=== PATIENT | female | born 1995 | race African-American/Black ===

== ENCOUNTER 2017-06-26 17:16 | Emergency (ER) | payer SELFPAY ==
[2017-06-26] MEDS ORDERED: Ondansetron ODT 4 MG TAB ONE (18:47)
[2017-06-26 19:32] LABS: Bilirubin Small (Negative); Blood, Urine Large (Negative); Clarity CLOUDY (Clear); Glucose, Urine (Dipstick) Negative (Negative); Leukocyte Trace (Negative); Nitrite Negative (Negative); Protein, Urine (Dipstick) Trace mg/dL (Neg-Trace); Specific Gravity, Urine 1.035 (1.002-1.036); pH, Urine 6.5 (5.0-9.0)
[2017-06-26 19:33] LABS: Bacteria/HPF Rare-Few HPF (None Seen); Hyaline Casts/LPF 4-6 HYALINE CAST LPF (0-3 Hyaline); Pathc Cast-AUWi Flag 1.08 (0-2.49)
[2017-06-26 19:39] LABS: Pregnancy Test - Urine (BHCG) Negative (Negative); Pregu Control Background? CLEAR/WHITE (CLR/WHITE); Pregu Control Bar Appear? YES (CONTROL BAR); Specific Gravity 1.035 (1.002-1.036)
== END 2017-06-26 19:43 | disposition home or self-care (01) ==
LOC: ERS 17:16
DX: R11.2 Nausea with vomiting, unspecified (principal)
CPT/HCPCS: 81003; 81015; 81025; 87804; 99284; Q0162

== ENCOUNTER 2017-07-03 08:12 | Emergency (ER) | payer SELFPAY ==
[2017-07-03 09:35] LABS: Bilirubin Negative (Negative); Blood, Urine Negative (Negative); Clarity CLOUDY (Clear); Glucose, Urine (Dipstick) Negative (Negative); Leukocyte Negative (Negative); Nitrite Negative (Negative); Protein, Urine (Dipstick) Negative (Neg-Trace); Specific Gravity, Urine 1.026 (1.002-1.036)
[2017-07-03 09:37] LABS: Pregnancy Test - Urine (BHCG) Negative (Negative); Pregu Control Background? CLEAR/WHITE (CLR/WHITE); Pregu Control Bar Appear? YES (CONTROL BAR); Specific Gravity 1.026 (1.002-1.036)
[2017-07-03] MEDS ORDERED: cefTRIAXone\\ROCEPHIN 250 MG VIAL ONE (10:06)
[2017-07-03] MEDS ORDERED: Azithromycin 250 MG TAB ONE (10:06)
[2017-07-03] MEDS ORDERED: Lidocaine 1% PF 5 ML VIAL ONE (10:07)
[2017-07-03] MEDS ORDERED: Ondansetron ODT 4 MG TAB ONE (10:07)
[2017-07-04 00:55] LABS: Chlamydia by PCR Not Detected (NotDetected); GC by PCR Not Detected (NotDetected)
== END 2017-07-03 10:24 | disposition home or self-care (01) ==
LOC: ERS 08:12
DX: N72 Inflammatory disease of cervix uteri (principal)
CPT/HCPCS: 81003; 81025; 87480; 87491; 87510; 87591; 87660; 96372; J0696; J2001; Q0162

== ENCOUNTER 2017-08-24 23:02 | Emergency (ER) | payer SELFPAY ==
[2017-08-24 23:24] LABS: Pregnancy Test - Urine (BHCG) Negative (Negative); Pregu Control Background? CLEAR/WHITE (CLR/WHITE); Pregu Control Bar Appear? YES (CONTROL BAR)
[2017-08-24 23:25] LABS: Bilirubin Negative (Negative); Blood, Urine Negative (Negative); Clarity CLEAR (Clear); Glucose, Urine (Dipstick) Negative (Negative); Leukocyte Negative (Negative); Nitrite Negative (Negative); Protein, Urine (Dipstick) Negative (Neg-Trace); Specific Gravity 1.028 (1.002-1.036); Specific Gravity, Urine 1.028 (1.002-1.036)
[2017-08-24 23:27] LABS: #Basophils 0.1 thou/uL (0.0-0.2); #Eosinphils 0.1 thou/uL (0.0-0.7); #Lymphocytes 3.5 thou/uL (1.20-3.40); #Monocytes 0.4 thou/uL (0.11-0.59); #Neutrophils 3.1 thou/uL (1.40-6.50); %Eosinophils 2.1 % (0.0-10.0); %Lymphocytes 48.2 % (21.0-51.0); %Monocytes 6.2 % (0.0-10.0); %Neutrophils 42.6 % (42.0-75.0); Hemoglobin 12.2 g/dL (12.0-16.0); Mean Corpuscular HGB CONC 32.6 g/dL (32.0-36.0); Mean Corpuscular Hemoglobin 27.2 pg (27.0-31.0); Mean Corpuscular Volume 83.5 fl (81.0-99.0); Mean Platelet Volume 7.1 fL (7.4-10.4); Platelet Count 286 thou/uL (130-400); RBC Distribution Width 13.9 % (11.5-14.5); Red Blood Cell (RBC) Count 4.49 mill/uL (4.20-5.40); White Blood Cell (WBC) Count 7.2 thou/uL (4.8-10.8)
[2017-08-24 23:49] LABS: ALT (SGPT) 9 U/L (8-55); AST (SGOT) 18 U/L (5-34); Albumin 3.9 g/dL (3.5-5.0); Alkaline Phosphatase 53 U/L (40-150); Anion Gap 12 mmol/L (10-20); BUN (Urea Nitrogen) 8 mg/dL (7.0-18.7); Bilirubin, Total 0.6 mg/dL (0.2-1.2); Calc. Creatinine Clearance 0 mL/min (70-130); Calcium 9.1 mg/dL (7.8-10.44); Carbon Dioxide 25 mmol/L (22-29); Chloride 106 mmol/L (98-107); Estimated GFR-MDRD Greater than 90; Globulin 3.3 g/dL (2.4-3.5); Glucose 94 mg/dL (70-105); Lipase 13 U/L (8-78); Potassium 3.6 mmol/L (3.5-5.1); Protein, Total 7.2 g/dL (6.0-8.3); Sodium 139 mmol/L (136-145)
[2017-08-25] MEDS ORDERED: Ondansetron ODT 8 MG TAB ONE (00:17)
== END 2017-08-25 01:25 | disposition home or self-care (01) ==
LOC: ERS 23:02
DX: K52.9 Noninfective gastroenteritis and colitis, unspecified (principal)
CPT/HCPCS: 36415; 80053; 81003; 81025; 83690; 85025; 99284

== ENCOUNTER 2017-12-31 16:01 | Emergency (ER) | payer SELFPAY ==
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
== END 2017-12-31 17:41 | disposition home or self-care (01) ==
LOC: ERS 16:01
DX: O9A.211 Injury, poisoning and certain other consequences of external causes complicating pregnancy, first trimester (principal); S00.03XA Contusion of scalp, initial encounter; W22.8XXA Striking against or struck by other objects, initial encounter; Z3A.01 Less than 8 weeks gestation of pregnancy
CPT/HCPCS: 70450

== ENCOUNTER 2018-08-05 05:30 | Inpatient (IN) | payer OTHER ==
[2018-08-07] MEDS ORDERED: Diphenoxylate HCl/Atropine Tablet PO PRN (05:20)
[2018-08-07] MEDS ORDERED: HYDROcodone/Acetaminophen 5/325 mg Tablet PO PRN ×2 (05:20→12:14)
[2018-08-07] MEDS ORDERED: Misoprostol 200 MCG TAB PR PRN (05:20)
[2018-08-07] MEDS ORDERED: NS / Oxytocin 40 units/1000ml 1,000 ML IV PRN (05:20)
[2018-08-07] MEDS ORDERED: NS w/ Oxytocin 10 units 500 ML IV SCH ×2 (05:20)
[2018-08-07] MEDS ORDERED: Ondansetron PF 4 MG/2 ML Vial IVP PRN ×3 (05:20→12:14)
[2018-08-07] MEDS ORDERED: Lidocaine 1% (PF) 30 ML VIAL SC PRN (05:20)
[2018-08-07] MEDS ORDERED: Ibuprofen 800 MG TAB PO PRN (05:20)
[2018-08-07] MEDS ORDERED: Carboprost 250 MCG/ML AMP IM SCH (05:20)
[2018-08-07] MEDS ORDERED: Butorphanol Tartrate 1 MG/ML VIAL SLOW IVP PRN (05:20)
[2018-08-07] MEDS ORDERED: Lactated Ringer's 1,000 ML IV SCH (05:20)
[2018-08-07] MEDS ORDERED: Methylergonovine 0.2 MG/ML VIAL IM PRN (05:20)
[2018-08-07 05:55] VITALS: BMI 44.3
[2018-08-07 05:58] LABS: Hemoglobin 11.9 g/dL (12.0-16.0); Mean Corpuscular HGB CONC 33.2 g/dL (32.0-36.0); Mean Corpuscular Hemoglobin 28.2 pg (27.0-31.0); Mean Corpuscular Volume 84.9 fL (78.0-98.0); Mean Platelet Volume 6.9 fL (7.4-10.4); Platelet Count 262 thou/uL (130-400); RBC Distribution Width 13.1 % (11.5-14.5); Red Blood Cell (RBC) Count 4.22 mill/uL (4.20-5.40); White Blood Cell (WBC) Count 8.8 thou/uL (4.8-10.8)
[2018-08-07 06:33] LABS: Syphilis Antibody Nonreactive (Nonreactive); Syphilis Antibody Index 0.06 S/CO (<1.00 Non-Reactive)
[2018-08-07 06:34] LABS: HBSAg Index 0.18 S/CO (0-0.99); Hep B Surf Ag Non-Reactive S/CO (NonReactive)
[2018-08-07] MEDS ORDERED: Oxytocin 10 UNITS/ML VIAL ONE ×2 (09:19→09:22)
[2018-08-07] MEDS ORDERED: CEFAZOLIN 1 GM VIAL ONE ×2 (09:19→09:20)
[2018-08-07] MEDS ORDERED: Methylergonovine 0.2 MG/ML VIAL ONE (09:20)
[2018-08-07] MEDS ORDERED: Fentanyl 100 MCG/2 ML VIAL ONE ×2 (09:26→09:40)
[2018-08-07 09:54] LABS: pH (Cord, venous) 7.18 (7.32-7.43)
[2018-08-07 09:55] LABS: Analyzer IN Cardio OR
[2018-08-07 09:59] LABS: Analyzer IN Cardio OR
[2018-08-07] MEDS ORDERED: L&D-Morphine 4 MG/ML VIAL SLOW IVP PRN (10:14)
[2018-08-07] MEDS ORDERED: Zolpidem Tartrate 5 MG TAB PO PRN (10:14)
[2018-08-07] MEDS ORDERED: diphenhydrAMINE 25 MG CAP PO PRN ×2 (10:14→12:14)
[2018-08-07] MEDS ORDERED: Promethazine HCl 25 MG/ML VIAL SLOW IVP PRN (10:14)
[2018-08-07] MEDS ORDERED: HYDROmorphone 2 MG/ML VIAL SLOW IVP PRN (10:14)
[2018-08-07] MEDS ORDERED: Ondansetron HCl/PF 4 MG/2 ML Vial IVP PRN ×2 (10:14)
[2018-08-07] MEDS ORDERED: diphenhydrAMINE 50 MG/ML VIAL IM PRN (10:14)
[2018-08-07] MEDS ORDERED: diphenhydrAMINE 50 MG/ML VIAL IVP PRN (10:14)
[2018-08-07] MEDS ORDERED: Promethazine HCl 25 MG/ML VIAL IM PRN ×2 (10:14)
[2018-08-07] MEDS ORDERED: Meperidine HCl/PF 25 MG/ML VIAL SLOW IVP PRN (10:14)
[2018-08-07] MEDS ORDERED: Naloxone HCl 0.4 mg/ml Vial IV PRN (10:14)
[2018-08-07] MEDS ORDERED: metroNIDAZOLE 500 MG in Premix Bag 1 BAG IVPB SCH (10:15)
[2018-08-07] MEDS ORDERED: Ketorolac Tromethamine 30 MG/ML VIAL IVP SCH (10:15)
[2018-08-07] MEDS ORDERED: Azithromycin 500 MG in Sodium Chloride 0.9% 250 ML 250 ML IVPB SCH (10:15)
[2018-08-07] MEDS ORDERED: Communication Order-Pharmacy FS SCH (10:15)
[2018-08-07] MEDS ORDERED: Meperidine HCl/PF 25 MG/ML VIAL ONE (10:32)
[2018-08-07] MEDS: fentaNYL Citrate/PF 2,000 MCG in Sodium Chloride 0.9% 60 ML IV PRN (10:40)
--- NOTE | 2018-08-07 11:00 | RAD ---
PELVIS 1 VIEW: HISTORY: Surgery without initial count COMPARISON: None. FINDINGS: There are surgical cristian over the lower pelvis. Mild widening of the pubic symphysis. No radiopaq ue foreign object is appreciated. IMPRESSION: No radiopaque foreign objects appreciated. POS: [facility]
[2018-08-07] MEDS ORDERED: ePHEDrine/0.9% NaCl/PF SYRINGE 50 mg/10 ml ONE ×2 (11:11)
[2018-08-07] MEDS ORDERED: EPINEPHrine 1 MG/ML AMP ONE (11:11)
[2018-08-07] MEDS ORDERED: PHENYLEPHRINE-NS 100 MCG/ML 10 ML SYRINGE ONE (11:11)
[2018-08-07] MEDS ORDERED: PROPOFOL 200 MG/20 ML VIAL ONE (11:11)
[2018-08-07] MEDS: Lactated Ringer's 1,000 ML IV SCH (11:30)
[2018-08-07] MEDS ORDERED: NS / Oxytocin 40 units/1000ml 1,000 ML IV SCH (12:14)
[2018-08-07] MEDS ORDERED: Adacel (T-DAP) 0.5 ML SYRINGE IM ONE (12:14)
[2018-08-07] MEDS ORDERED: Meperidine HCl/PF 25 MG/ML VIAL IM PRN (12:14)
[2018-08-07] MEDS ORDERED: Simethicone Chewable 80 MG TAB PO PRN (12:14)
[2018-08-07] MEDS ORDERED: Bisacodyl 10 MG SUPP PR PRN (12:14)
[2018-08-07] MEDS: Ibuprofen 800 MG TAB PO SCH ×2 (17:26→22:10)
[2018-08-07] MEDS ORDERED: Sodium Chloride 0.9% 10 ML ONE (17:41)
[2018-08-07] MEDS: CEFAZOLIN 2 GM in Premix Bag 1 BAG IVPB SCH (17:52)
[2018-08-07] MEDS: metroNIDAZOLE 500 MG in Premix Bag 1 BAG IVPB SCH (19:54)
[2018-08-07] MEDS: Docusate Calcium (SURFAK) 240 MG CAP PO SCH (22:08)
[2018-08-07] MEDS: Ferrous Sulfate 325 MG TAB PO SCH (22:08)
[2018-08-07] MEDS: Ketorolac Tromethamine 30 MG/ML VIAL IVP PRN (22:10)
[2018-08-08] MEDS: CEFAZOLIN 2 GM in Premix Bag 1 BAG IVPB SCH ×3 (02:48→18:28)
[2018-08-08] MEDS: Lactated Ringer's 1,000 ML IV SCH (03:48)
[2018-08-08] MEDS: metroNIDAZOLE 500 MG in Premix Bag 1 BAG IVPB SCH ×3 (03:48→20:07)
[2018-08-08] MEDS: Ketorolac Tromethamine 30 MG/ML VIAL IVP PRN ×3 (03:49→21:29)
[2018-08-08] MEDS: Ibuprofen 800 MG TAB PO SCH ×3 (05:43→13:23)
[2018-08-08 06:56] LABS: Hemoglobin 9.6 g/dL (12.0-16.0); Mean Corpuscular Hemoglobin 28.4 pg (27.0-31.0); Mean Corpuscular Volume 85.8 fL (78.0-98.0); Mean Platelet Volume 6.7 fL (7.4-10.4); Platelet Count 217 thou/uL (130-400); RBC Distribution Width 13.2 % (11.5-14.5); Red Blood Cell (RBC) Count 3.38 mill/uL (4.20-5.40); White Blood Cell (WBC) Count 11.7 thou/uL (4.8-10.8)
[2018-08-08] MEDS: Ferrous Sulfate 325 MG TAB PO SCH ×2 (08:39→21:28)
[2018-08-08] MEDS: Prenatal Vitamin 1 TAB PO SCH (08:39)
[2018-08-08] MEDS: Docusate Calcium (SURFAK) 240 MG CAP PO SCH ×2 (08:39→21:28)
[2018-08-08] MEDS: fentaNYL Citrate/PF 2,000 MCG in Sodium Chloride 0.9% 60 ML IV PRN (14:43)
--- NOTE | 2018-08-08 23:30 | OP ---
DATE OF PROCEDURE: 08/07/2018 RESIDENT SURGEON: Dr. Guerline Camp. PROCEDURE PERFORMED: Primary low transverse section. PREOPERATIVE DIAGNOSES: 1. Term intrauterine . 2. Encounter for induction of labor. 3. Non-reassuring heart tones with bradycardia into the 40s. POSTOPERATIVE DIAGNOSES: 1. Term intrauterine , delivered. 2. Primary low-transverse section. 3. Non-reassuring heart tones with bradycardia into the 40s. ANESTHESIA: General anesthesia. INDICATIONS: This is a 22-year-old female G1, P0, at 40 and 1 weeks who presented to Labor and delivery for an elective induction. Due to nonreassuring heart tones with bradycardia into the 40s, the patient was taken back for stat section. General anesthesia was initiated and the was delivered within 1 minute from cutt time. DESCRIPTION OF PROCEDURE: After risks, benefits, and alternatives were explained to the patient, she gave informed consent. Of note, this was a stat delivery due to nonreassuring heart tones with bradycardia into the 40s. Preoperative antibiotics included cefazolin 2 g and azithromycin 500 mg, which was actually given after the delivery was complete. The patient was taken back to operating room stat and general anesthesia was performed. The patient was placed in the supine position with left tilt, prepped and draped in the sterile fashion. A Pfannenstiel incision was made with a scalpel, carried down to the level of fascia which was sharply nicked. The fascial cut was extended bilaterally with Wade scissors. The inferior and superior fascial edges were elevated with Judit clamps and underlying rectus muscles were sharply and bluntly dissected free. The recti were dissected digitally and retracted manually. Peritoneum was entered bluntly and retracted manually. Bladder blade was placed. A low transverse score was made with a scalpel. The uterus was entered in the midline with a scalpel. Clear fluid was seen. The hysterotomy was extended manually. was noted to be vertex and was easily delivered by fundal pressure. Mouth and nares were bulb suctioned. Cord was clamped and cut and grossly normal. Female was handed to the waiting nurse. Cord blood was obtained along with cord gas. Placenta was manually extracted and found to be intact with three-vessel cord and sent for pathology. The uterus was externalized and endometrium was curetted with a dry lap. The bladder blade was placed. The uterus was closed with a running locking 0 Vicryl suture followed by suctioned free of clots. The uterus was then internalized and hysterotomy was noted to be hemostatic. The peritoneum was closed using 3-0 Vicryl. The fascia was then closed with running nonlocking 0 PDS suture. The subcutaneous tissue was irrigated and bleeders were cauterized. The subcutaneous tissue was brought together using 3-0 Vicryl. The skin was then approximated with cristian and a pressure dressing was placed. All counts were correct. The patient tolerated the procedure well and was taken to the recovery room in stable condition after awakening from general anesthesia. ESTIMATED BLOOD LOSS: Approximately 500 mL, although I am waiting for a report to verify. COMPLICATIONS: None. SPECIMENS: Cord blood sent to lab for blood type and cord gas sent for analysis. FINDINGS: Grossly normal female infant with Apgars of 7 and 8 at 1 and 5 minutes respectively. Grossly normal placenta with three-vessel cord sent for pathology. DRAINS: Joe to gravity draining clear urine. Job ID: [id number] [facility]
[2018-08-09] MEDS: CEFAZOLIN 2 GM in Premix Bag 1 BAG IVPB SCH (02:20)
[2018-08-09] MEDS: metroNIDAZOLE 500 MG in Premix Bag 1 BAG IVPB SCH (04:00)
[2018-08-09] MEDS: Ketorolac Tromethamine 30 MG/ML VIAL IVP PRN (04:06)
[2018-08-09] MEDS: Lanolin Ointment 7 GM TUBE TOP PRN (04:06)
[2018-08-09] MEDS: Ibuprofen 800 MG TAB PO SCH ×3 (06:43→21:55)
[2018-08-09] MEDS: Ferrous Sulfate 325 MG TAB PO SCH ×2 (08:25→21:54)
[2018-08-09] MEDS: Prenatal Vitamin 1 TAB PO SCH (08:25)
[2018-08-09] MEDS: Docusate Calcium (SURFAK) 240 MG CAP PO SCH ×2 (08:26→21:54)
[2018-08-09] MEDS ORDERED: metroNIDAZOLE 500 MG TAB PO SCH ×2 (11:00→15:00)
[2018-08-09] MEDS: Cephalexin 250 MG CAP PO SCH ×3 (11:19→21:54)
[2018-08-09] MEDS: HYDROcodone/Acetaminophen 5/325 mg Tablet PO PRN ×2 (13:49→20:26)
[2018-08-09] MEDS: metroNIDAZOLE 500 MG TAB PO SCH (21:55)
[2018-08-10] MEDS: HYDROcodone/Acetaminophen 5/325 mg Tablet PO PRN (02:57)
[2018-08-10] MEDS: Cephalexin 250 MG CAP PO SCH ×2 (03:49→08:48)
[2018-08-10] MEDS: Ibuprofen 800 MG TAB PO SCH (06:10)
[2018-08-10] MEDS: metroNIDAZOLE 500 MG TAB PO SCH (06:10)
[2018-08-10] MEDS: Prenatal Vitamin 1 TAB PO SCH (08:45)
[2018-08-10] MEDS: Docusate Calcium (SURFAK) 240 MG CAP PO SCH (08:46)
[2018-08-10] MEDS: Ferrous Sulfate 325 MG TAB PO SCH (08:46)
[2018-08-10 10:29] VITALS: BP 144/78; TEMP 98.3
[2018-08-10] MEDS: Lanolin Ointment 7 GM TUBE TOP PRN (12:33)
== END 2018-08-10 12:46 | disposition home or self-care (01) | DRG 788 ==
LOC: L&D 08-07 05:20 → 3SE 08-07 14:14
PROVIDERS: ADMIT Family Medicine; ATTEND Family Medicine
PROC: 10D00Z1 Extraction of Products of Conception, Low, Open Approach (ICD-10-PCS; principal; 2018-08-07)
PROC: 10907ZC Drainage of Amniotic Fluid, Therapeutic from Products of Conception, Via Natural or Artificial Opening (ICD-10-PCS; 2018-08-07)
PROC: 3E033VJ Introduction of Other Hormone into Peripheral Vein, Percutaneous Approach (ICD-10-PCS; 2018-08-07)
PROC: 10H07YZ Insertion of Other Device into Products of Conception, Via Natural or Artificial Opening (ICD-10-PCS; 2018-08-07)
DX: O99.214 Obesity complicating childbirth (principal); O76 Abnormality in fetal heart rate and rhythm complicating labor and delivery; E66.9 Obesity, unspecified; Z3A.40 40 weeks gestation of pregnancy; Z37.0 Single live birth
CPT/HCPCS: 36415; 51702; 72170; 82805; 85027; 86780; 86850; 86900; 86901; 87340; 88307; 90715; J0171; J0456; J0595; J0690; J1885; J2175; J2210; J2590; J2704; J3010; J7050

== ENCOUNTER 2018-11-02 13:24 | Emergency (ER) | payer OTHER, SELFPAY | END 2018-11-02 15:32 | disposition home or self-care (01) | LOC: ERS 13:24 | DX: H66.92 Otitis media, unspecified, left ear (principal); J06.9 Acute upper respiratory infection, unspecified | CPT/HCPCS: 99283 ==

== ENCOUNTER 2018-12-30 18:03 | Emergency (ER) | payer SELFPAY ==
[2018-12-30] MEDS ORDERED: Ondansetron ODT 4 MG TAB ONE (18:22)
[2018-12-30 18:43] LABS: #Basophils 0.1 thou/uL (0.0-0.2); #Eosinphils 0.2 thou/uL (0.0-0.7); #Monocytes 0.4 thou/uL (0.11-0.59); #Neutrophils 3.1 thou/uL (1.40-6.50); %Basophils 1.1 % (0.0-1.0); %Lymphocytes 44.4 % (21.0-51.0); %Neutrophils 45.5 % (42.0-75.0); Hemoglobin 12.2 g/dL (12.0-16.0); Mean Corpuscular HGB CONC 32.1 g/dL (32.0-36.0); Mean Corpuscular Hemoglobin 26.8 pg (27.0-31.0); Mean Corpuscular Volume 83.5 fL (78.0-98.0); Mean Platelet Volume 7.2 fL (7.4-10.4); Platelet Count 270 thou/uL (130-400); RBC Distribution Width 13.9 % (11.5-14.5); Red Blood Cell (RBC) Count 4.56 mill/uL (4.20-5.40); White Blood Cell (WBC) Count 6.8 thou/uL (4.8-10.8)
[2018-12-30 18:52] LABS: BHCG - Serum POSITIVE (NEGATIVE); Pregs Control Background? CLEAR/WHITE (CLR/WHITE); Pregs Control Bar Appear? YES (CONTROL BAR)
[2018-12-30 19:05] LABS: ALT (SGPT) 27 U/L (8-55); AST (SGOT) 22 U/L (5-34); Albumin 3.8 g/dL (3.5-5.0); Alkaline Phosphatase 62 U/L (40-150); Anion Gap 12 mmol/L (10-20); BUN (Urea Nitrogen) 7 mg/dL (7.0-18.7); Bilirubin, Total 0.8 mg/dL (0.2-1.2); Calc. Creatinine Clearance 0 mL/min (70-130); Carbon Dioxide 22 mmol/L (22-29); Chloride 105 mmol/L (98-107); Estimated GFR-MDRD Greater than 90; Globulin 3.1 g/dL (2.4-3.5); Glucose 78 mg/dL (70-105); Potassium 3.4 mmol/L (3.5-5.1); Protein, Total 6.9 g/dL (6.0-8.3); Sodium 136 mmol/L (136-145)
== END 2018-12-30 19:47 | disposition home or self-care (01) ==
LOC: ERS 18:03
DX: R11.2 Nausea with vomiting, unspecified (principal); R19.7 Diarrhea, unspecified
CPT/HCPCS: 36415; 80053; 84703; 85025; 99284; Q0162

== ENCOUNTER 2019-01-14 19:37 | Emergency (ER) | payer SELFPAY ==
[2019-01-14 20:22] LABS: #Eosinphils 0.1 thou/uL (0.0-0.7); #Lymphocytes 2.1 thou/uL (1.20-3.40); #Monocytes 0.4 thou/uL (0.11-0.59); #Neutrophils 4.2 thou/uL (1.40-6.50); %Basophils 0.3 % (0.0-1.0); %Eosinophils 0.9 % (0.0-10.0); %Lymphocytes 30.6 % (21.0-51.0); %Monocytes 5.7 % (0.0-10.0); %Neutrophils 62.5 % (42.0-75.0); Hemoglobin 12.7 g/dL (12.0-16.0); Mean Corpuscular HGB CONC 33.6 g/dL (32.0-36.0); Mean Corpuscular Hemoglobin 27.8 pg (27.0-31.0); Mean Corpuscular Volume 82.8 fL (78.0-98.0); Mean Platelet Volume 7.3 fL (7.4-10.4); Platelet Count 244 thou/uL (130-400); RBC Distribution Width 14.4 % (11.5-14.5); Red Blood Cell (RBC) Count 4.58 mill/uL (4.20-5.40); White Blood Cell (WBC) Count 6.7 thou/uL (4.8-10.8)
[2019-01-14] MEDS ORDERED: Ondansetron PF 4 MG/2 ML Vial ONE (20:41)
[2019-01-14 20:44] LABS: ALT (SGPT) 16 U/L (8-55); AST (SGOT) 19 U/L (5-34); Albumin 4.1 g/dL (3.5-5.0); Alkaline Phosphatase 59 U/L (40-150); Anion Gap 13 mmol/L (10-20); BUN (Urea Nitrogen) 8 mg/dL (7.0-18.7); Bilirubin, Total 1.3 mg/dL (0.2-1.2); CK (CPK) 338 U/L (29-168); Calc. Creatinine Clearance 0 mL/min (70-130); Calcium 9.6 mg/dL (7.8-10.44); Carbon Dioxide 23 mmol/L (22-29); Chloride 103 mmol/L (98-107); Estimated GFR-MDRD Greater than 90; Globulin 3.4 g/dL (2.4-3.5); Glucose 78 mg/dL (70-105); Lipase 5 U/L (8-78); Protein, Total 7.5 g/dL (6.0-8.3); Sodium 135 mmol/L (136-145)
[2019-01-14 20:57] LABS: Bacteria/HPF 4+ HPF (None Seen); Bilirubin Negative (Negative); Blood, Urine Negative (Negative); Clarity Extra Turbid (Clear); Glucose, Urine (Dipstick) Normal (Negative); Leukocyte 500 Leu/uL (Negative); Mucous/LPF Rare LPF (<2+); Nitrite Negative (Negative); Protein, Urine (Dipstick) 300 mg/dL (Neg-Trace); WBC/HPF Greater than 50 HPF (0-3)
[2019-01-14 21:00] LABS: RBC/HPF 0-3 HPF (0-3)
[2019-01-14 21:01] LABS: Squamous Epithelial 21-50 HPF (0-3)
--- NOTE | 2019-01-14 21:52 | ULT ---
PELVIC ULTRASOUND: 01/14/19 HISTORY: Pelvic pain, nausea and vomiting. Transabdominal ultrasound of pelvis performed. There is a viable intrauterine identified. A gestational sac is noted. A yolk sac is iden tified. A pole is identified. [place]-rump length indicates a 7 week, 0 day gestation. hear t rate recorded at 128 beats per minute. The right ovary is identified and appears unremarkable. Doppler and spectral analysis demonstrates bl ood flow to the right ovary. The left ovary is not identified. No free fluid. IMPRESSION: A viable intrauterine . [place]-rump length indicates a 7 weeks, 0 day gestational age. POS: [facility]
== END 2019-01-14 22:15 | disposition home or self-care (01) ==
LOC: ERS 19:37
DX: O99.281 Endocrine, nutritional and metabolic diseases complicating pregnancy, first trimester (principal); E86.0 Dehydration; O23.41 Unspecified infection of urinary tract in pregnancy, first trimester; O21.9 Vomiting of pregnancy, unspecified; O99.89 Other specified diseases and conditions complicating pregnancy, childbirth and the puerperium; R19.7 Diarrhea, unspecified; Z3A.01 Less than 8 weeks gestation of pregnancy
CPT/HCPCS: 36415; 76856; 80053; 81003; 81015; 82550; 83690; 84702; 85025; 96361; 96374; J2405

== ENCOUNTER 2019-01-17 10:30 | Emergency (ER) | payer SELFPAY ==
[2019-01-17] MEDS ORDERED: Metoclopramide HCl 10 MG/2 ML VIAL ONE (13:11)
[2019-01-17 13:39] LABS: #Lymphocytes 1.3 thou/uL (1.20-3.40); #Monocytes 0.1 thou/uL (0.11-0.59); #Neutrophils 7.7 thou/uL (1.40-6.50); %Basophils 0.3 % (0.0-1.0); %Eosinophils 0.2 % (0.0-10.0); %Lymphocytes 14.2 % (21.0-51.0); %Monocytes 1.1 % (0.0-10.0); %Neutrophils 84.2 % (42.0-75.0); Hemoglobin 13.3 g/dL (12.0-16.0); Mean Corpuscular HGB CONC 33.5 g/dL (32.0-36.0); Mean Corpuscular Hemoglobin 27.8 pg (27.0-31.0); Mean Corpuscular Volume 83.1 fL (78.0-98.0); Mean Platelet Volume 7.2 fL (7.4-10.4); Platelet Count 289 thou/uL (130-400); RBC Distribution Width 14.7 % (11.5-14.5); Red Blood Cell (RBC) Count 4.76 mill/uL (4.20-5.40); White Blood Cell (WBC) Count 9.1 thou/uL (4.8-10.8)
[2019-01-17 13:57] LABS: ALT (SGPT) 21 U/L (8-55); AST (SGOT) 19 U/L (5-34); Albumin 4.4 g/dL (3.5-5.0); Alkaline Phosphatase 62 U/L (40-150); Anion Gap 13 mmol/L (10-20); BUN (Urea Nitrogen) 8 mg/dL (7.0-18.7); Bilirubin, Total 0.9 mg/dL (0.2-1.2); Calc. Creatinine Clearance 0 mL/min (70-130); Calcium 10.1 mg/dL (7.8-10.44); Carbon Dioxide 22 mmol/L (22-29); Chloride 106 mmol/L (98-107); Estimated GFR-MDRD Greater than 90; Globulin 3.4 g/dL (2.4-3.5); Glucose 106 mg/dL (70-105); Potassium 3.8 mmol/L (3.5-5.1); Protein, Total 7.8 g/dL (6.0-8.3); Sodium 137 mmol/L (136-145)
[2019-01-17 14:05] LABS: Bilirubin Small (Negative); Blood, Urine Trace (Negative); Glucose, Urine (Dipstick) Negative (Negative); Leukocyte Small (Negative); Nitrite Negative (Negative); Protein, Urine (Dipstick) 30 mg/dL (Neg-Trace)
[2019-01-17 14:30] LABS: Clarity Cloudy (Clear)
[2019-01-17 14:32] LABS: Bacteria/HPF 2+ HPF (None Seen); RBC/HPF 0-3 HPF (0-3); Squamous Epithelial 21-50 HPF (0-3)
[2019-01-17] MEDS ORDERED: cefTRIAXone\\ROCEPHIN 1 GM VIAL ONE (15:08)
[2019-01-17] MEDS ORDERED: Promethazine HCl 25 MG/ML VIAL ONE (15:31)
== END 2019-01-17 16:32 | disposition home or self-care (01) ==
LOC: ERS 10:30
DX: O23.41 Unspecified infection of urinary tract in pregnancy, first trimester (principal); O99.89 Other specified diseases and conditions complicating pregnancy, childbirth and the puerperium; R19.7 Diarrhea, unspecified; Z3A.08 8 weeks gestation of pregnancy
CPT/HCPCS: 36415; 80053; 81003; 81015; 85025; 87086; 87324; 87328; 87329; 87449; 96361; 96365; 96367; 96375; J0696; J2550; J2765

== ENCOUNTER 2019-02-01 14:12 | Observation (INO) | payer OTHER, SELFPAY ==
[2019-02-01 15:57] LABS: #Lymphocytes 2.5 thou/uL (1.20-3.40); #Monocytes 0.7 thou/uL (0.11-0.59); #Neutrophils 5.9 thou/uL (1.40-6.50); %Basophils 0.4 % (0.0-1.0); %Eosinophils 0.3 % (0.0-10.0); %Lymphocytes 27.5 % (21.0-51.0); %Monocytes 8.1 % (0.0-10.0); %Neutrophils 63.7 % (42.0-75.0); Hemoglobin 14.6 g/dL (12.0-16.0); Mean Corpuscular Hemoglobin 28.3 pg (27.0-31.0); Mean Corpuscular Volume 83.2 fL (78.0-98.0); Mean Platelet Volume 7.6 fL (7.4-10.4); Platelet Count 293 thou/uL (130-400); RBC Distribution Width 14.1 % (11.5-14.5); Red Blood Cell (RBC) Count 5.15 mill/uL (4.20-5.40); White Blood Cell (WBC) Count 9.2 thou/uL (4.8-10.8)
[2019-02-01 16:19] LABS: ALT (SGPT) 105 U/L (8-55); AST (SGOT) 58 U/L (5-34); Albumin 4.1 g/dL (3.5-5.0); Alkaline Phosphatase 76 U/L (40-150); Anion Gap 15 mmol/L (10-20); BUN (Urea Nitrogen) 11 mg/dL (7.0-18.7); Calc. Creatinine Clearance 0 mL/min (70-130); Calcium 10.9 mg/dL (7.8-10.44); Carbon Dioxide 37 mmol/L (22-29); Chloride 85 mmol/L (98-107); Estimated GFR-MDRD 73; Globulin 4.4 g/dL (2.4-3.5); Glucose 98 mg/dL (70-105); Protein, Total 8.5 g/dL (6.0-8.3); Sodium 134 mmol/L (136-145)
[2019-02-01 16:21] LABS: Potassium 2.9 mmol/L (3.5-5.1)
[2019-02-01] MEDS ORDERED: Potassium Chloride 20 MEQ TAB ONE (17:01)
[2019-02-01] MEDS ORDERED: Promethazine HCl 25 MG/ML VIAL ONE (17:05)
--- NOTE | 2019-02-01 19:24 | ULT ---
RIGHT UPPER QUADRANT ULTRASOUND: 02/01/2019 PROVIDED CLINICAL HISTORY: Nausea and vomiting. FINDINGS: The visualized IVC and pancreas appear normal. The liver demonstrates no mass or intrahepatic biliar y ductal dilatation. The common duct is not dilated. The gallbladder demonstrates sludge and probab le small gallstones, without evidence for wall thickening or pericholecystic fluid. The fighting vehicle infantryman reports a negative sonographic Soliman sign. The right kidney demonstrates no evidence for hydronephr osis or mass. IMPRESSION: Cholelithiasis/sludge within the gallbladder without evidence for acute findings related to the gallb ladder. POS: [facility]
--- NOTE | 2019-02-01 19:28 | ULT ---
US Pelvic W Doppler HISTORY: Pelvic pain COMPARISON: 01/14/2019 study. FINDINGS: Real-time imaging of the pelvis was obtained transabdominally. This shows a single viable i ntrauterine . [place]-rump length measurements are 2.7 cm corresponding to 9 weeks 3 days. Gestational sac measurements are 3.6 cm corresponding to 8 weeks 6 days. No subchorionic bleed is seen. The heart rate is 187 bpm. The right and left adnexal regions appear unremarkable. The right ovary somewhat difficult to visuali ze. Doppler evaluation with spectral analysis: Normal flow shown to the ovaries. IMPRESSION: Single viable intrauterine with measurements corresponding to a gestational age of 9 weeks 1 day, the estimated date of delivery is 09/05/2019.
[2019-02-01 20:00] LABS: ALT (SGPT) 109 U/L (8-55); AST (SGOT) 58 U/L (5-34); Albumin 4.2 g/dL (3.5-5.0); Alkaline Phosphatase 78 U/L (40-150); Bilirubin, Direct 1.9 mg/dL (0.1-0.3); Protein, Total 8.4 g/dL (6.0-8.3)
[2019-02-01 20:17] LABS: Bilirubin 1+ (Negative); Blood, Urine Negative (Negative); Clarity Turbid (Clear); Glucose, Urine (Dipstick) Greater than 1000 mg/dL (Negative); Leukocyte 75 Leu/uL (Negative); Nitrite Negative (Negative); Protein, Urine (Dipstick) 30 mg/dL (Neg-Trace); RBC/HPF 0-3 HPF (0-3); Urobilinogen 12 mg/dL (Less than 2)
[2019-02-01 20:30] LABS: Bacteria/HPF 2+ HPF (None Seen)
[2019-02-01] MEDS ORDERED: Ondansetron PF 4 MG/2 ML Vial IVP PRN (22:22)
[2019-02-01] MEDS ORDERED: Promethazine HCl 25 MG/ML VIAL IM/IV PRN (22:24)
--- NOTE | 2019-02-01 23:19 | PDOC.FPROB ---
FMR OB H&P: HPI - History of Present Illness Chief Complaint: 4 week history of nausea, vomiting, and fatigue. History of Present Illness: Ms. Cutler is a 23 year old female who presents to the ER tonight due to a 4 week history of severe nausea and vomiting every time she eats. She is unable to keep any food or drink down, including pedialyte, water, or applesauce. Yesterday, she experienced an episode of dizziness where she felt like she might faint. Oral Zofran has not helped her nausea, which she currently rates as a 7/10. She has come to the ER a few times before for the same chief complaint of severe nausea and vomiting. Patient reports having loose stools, orthostatic hypotension, intermittent numbness in her lower extremities, severe fatigue, and reflux. She also reports that she usually weights around 245 pounds, but the last time she checked her weight the scale read 215 pounds. Patient denies chest pain, shortness of breath, and changes in urination. FMR OB H&P: Current - Care : 2 Para: 1 Gestational age: 9 weeks 1 day as indicated on pelvic US FMR OB H&P: History - Past Medical History PMH: Unremarkable. - OB History OB History: The patient is . LMP was in October 2018. Patient has not scheduled her first appointment yet. Roll Filler for her previous was Dr. Posadas. She gave to her daughter on 2018 via emergency due to bradycardia. - LEGAL ADMINISTRATIVE SECRETARY History LEGAL ADMINISTRATIVE SECRETARY History: Denies history of HIV and STDs including gonorrhea, chlamydia, and syphilis. She does report having vaginal candidiasis and bacterial vaginosis during previous , for which she was treated for. All previous Pap Smears have been normal. - Surgical History Sx History: Emergency on 2018. No complications in recovery. - Social History Social History: Unknown. Will need to assess further for alcohol, tobacco, and drug use. FMR OB H&P: Medications - Current Home Medications: Medication Instructions Recorded Confirmed Type No Known 02/01/19 02/01/19 History Allergies/Adverse Reactions: Allergies Allergy/AdvReac Type Severity Reaction Status Date / Time No Known Allergies Allergy Verified 02/01/19 23:30 FMR OB H&P: ROS - Review of Systems General: reports: weight/appetite/sleep changes, fatigue Cardiovascular: reports: other (orthostatic hypotension) Respiratory: reports: shortness of breath Gastrointestinal: reports: nausea, vomiting, diarrhea, constipation Musculoskeletal: reports: swelling Neurologic: reports: numbness FMR OB H&P: Vital Signs - Maternal Vital signs: Vitals at 23:25 T 98.1 F HR 86 bpm RR 18 BP 109/58 O2 98% on room air FMR OB H&P: Physical Exam - Physical Exam General: awake, alert and oriented HEENT: EOMI, other (Dry mucous membranes.) Neck: supple, trachea midline, no LAD Chest: no lesions Heart: RRR, normal S1/S2, no murmurs/rubs/gallops, pulses present (2+ radial pulses and 1+ pedal pulses.) General: good air movement, no rales/rhonchi Abdomen: soft, non-tender, bowel sound present Musculoskeletal: other (1+ edema in lower extremities bilaterally.) Neurological: cranial nerves II through XII intact Skin: other (Mildly delayed capillary refill >2 seconds.) Lymphatic: no unusual bruising or bleeding Psychiatric: intact recent and remote memory, good judgement and insight, normal mood and affect FMR OB H&P: Results - Labs Lab results: Laboratory Results - last 24 hr 02/01/19 02/01/19 02/01/19 15:48 15:48 15:48 WBC 9.2 RBC 5.15 Hgb 14.6 Hct 42.8 MCV 83.2 MCH 28.3 MCHC 34.0 RDW 14.1 Plt Count 293 MPV 7.6 Neutrophils % 63.7 Lymphocytes % 27.5 Monocytes % 8.1 Eosinophils % 0.3 Basophils % 0.4 Neutrophils # 5.9 Lymphocytes # 2.5 Monocytes # 0.7 H Eosinophils # 0.0 Basophils # 0.0 Sodium 134 L Potassium 2.9 L* Chloride 85 L Carbon Dioxide 37 H Anion Gap 15 BUN 11 Creatinine 1.12 H Estimated GFR (MDRD) 73 Glucose 98 Calcium 10.9 H Total Bilirubin 3.0 H Direct Bilirubin AST 58 H ALT 105 H Alkaline Phosphatase 76 Serum Total Protein 8.5 H Albumin 4.1 Globulin 4.4 H Albumin/Globulin Ratio 0.9 L Lipase 8 Total Beta HCG Urine Color Urine Clarity Urine pH Ur Specific Webber Urine Protein Urine Glucose (UA) Urine Ketones Urine Blood Urine Nitrite Urine Bilirubin Urine Urobilinogen Ur Leukocyte Esterase Urine RBC Urine WBC Ur Squamous Epith Cells Urine Bacteria Hyaline Casts 02/01/19 02/01/19 02/01/19 16:47 16:58 18:18 WBC RBC Hgb Hct MCV MCH MCHC RDW Plt Count MPV Neutrophils % Lymphocytes % Monocytes % Eosinophils % Basophils % Neutrophils # Lymphocytes # Monocytes # Eosinophils # Basophils # Sodium Potassium Chloride Carbon Dioxide Anion Gap BUN Creatinine Estimated GFR (MDRD) Glucose Calcium Total Bilirubin 3.0 H Direct Bilirubin 1.9 H AST 58 H ALT 109 H Alkaline Phosphatase 78 Serum Total Protein 8.4 H Albumin 4.2 Globulin Albumin/Globulin Ratio Lipase Total Beta HCG 235341.05 Urine Color Dark-Yellow Urine Clarity Turbid A Urine pH 5.5 Ur Specific Webber 1.025 Urine Protein 30 A Urine Glucose (UA) Greater than 1000 A Urine Ketones 40 A Urine Blood Negative Urine Nitrite Negative Urine Bilirubin 1+ A Urine Urobilinogen 12 A Ur Leukocyte Esterase 75 A Urine RBC 0-3 Urine WBC 11-20 A Ur Squamous Epith Cells 11-20 A Urine Bacteria 2+ A Hyaline Casts 4-6 A FMR OB H&P: A/P - Problem List (1) Hyperemesis gravidarum Current Visit: Yes Status: Acute Code(s): O21.0 - MILD HYPEREMESIS GRAVIDARUM Assessment and Plan: We will admit the patient to the hospital. Zofran, Phenergan, Reglan, and Pepsid will be available to the patient to help control her nausea and reduce vomiting. (2) Hypokalemia Current Visit: Yes Status: Acute Code(s): E87.6 - HYPOKALEMIA Assessment and Plan: Will control patient's nausea and vomiting with anti-emetics as well as provide supplemental potassium. (3) Dehydration Current Visit: Yes Status: Acute Code(s): E86.0 - DEHYDRATION Assessment and Plan: We will hydrate the patient with IV fluids (Normal Saline). (4) First trimester Current Visit: Yes Status: Acute Code(s): Z34.91 - ENCNTR FOR SUPRVSN OF NORMAL PREG, UNSP, FIRST TRIMESTER Discussion: Date/Time: 02/01/19 9116 This H&P was discussed with [Rico] who agree with the above documentation and plan. Patient seen and examined with MS3 by myself. Agree with above. Varghese
[2019-02-02] MEDS: Potassium Chloride 20 MEQ in Lactated Ringer's 1,000 ML IV SCH ×2 (00:25→07:54)
[2019-02-02] MEDS: Metoclopramide HCl 10 MG/2 ML VIAL IVP SCH ×2 (05:02→15:21)
[2019-02-02 06:07] LABS: Anion Gap 10 mmol/L (10-20); BUN (Urea Nitrogen) 7 mg/dL (7.0-18.7); Calc. Creatinine Clearance 192 mL/min (70-130); Calcium 8.7 mg/dL (7.8-10.44); Carbon Dioxide 31 mmol/L (22-29); Chloride 95 mmol/L (98-107); Estimated GFR-MDRD Greater than 90; Glucose 88 mg/dL (70-105); Potassium 2.8 mmol/L (3.5-5.1); Sodium 133 mmol/L (136-145)
--- NOTE | 2019-02-02 07:21 | PRG ---
DATE OF SERVICE: 02/02/2019 TIME OF SERVICE: 0650. SUBJECTIVE: Ms. Cutler is resting comfortably. She reports continued nausea. No emesis. OBJECTIVE: VITAL SIGNS: Temperature 98.6, pulse 81, blood pressure 108/55, respirations 16. HEENT: Within normal limits. LUNGS: Clear to auscultation bilaterally. HEART: Regular rate and rhythm. ABDOMEN: Soft and nontender. EXTREMITIES: No clubbing, cyanosis, or edema. LABORATORY DATA: Repeat basic met this morning shows a potassium dropped from 2.9 to 2.8, sodium is down from 134 to 133, creatinine has improved from 1.1 to 0.75. IMPRESSION: Hyperemesis gravidarum with hypokalemia, hyponatremia, and dehydration. PLAN: Continue IV fluids. We will change from lactated Ringer's at 20 to normal saline at 40 mEq/L. We will repeat basic met this p.m. Continue therapy with Phenergan, Reglan, and Zofran. Dr. Delano Parrish, on for OB hospitalist, after 0800. Job ID: [id number]
[2019-02-02] MEDS: NS 0.9% w/ 40 MEQ KCL 1,000 ML IV SCH ×2 (08:52→15:13)
[2019-02-02] MEDS ORDERED: Famotidine/PF 20 mg/2ml Vial SLOW IVP SCH (09:00)
--- NOTE | 2019-02-02 09:17 | PDOC.EVN ---
Event Note - Event Note Event Note: Chart Check [facility] Labs reviewed: mild transaminase elevation SONO with cholelithiasis We will: Order Hep panel Order H Pylori Consider adding zantac if not in use Add banana bag Continue K replacement
--- NOTE | 2019-02-02 09:32 | PDOC.EVN ---
Event Note - Event Note Event Note: [facility] Progress Note Admitted: 02/01/19 Dx: Hyperemesis gravidarium Pt. is a 23 yo female presenting to the hospital for the 4th time for hyperemesis. On hospital day 2, she appears to be doing better and is ambulating around the room. She hasn't eaten much but was instructed to eat today and to observe if she is able to handle the food without nausea/vomiting. Objective: Labs and imaging were reviewed and shared with the patient. A/P: Hyperemesis gravidarium work up pending. Ordered a hepatitis panel and H. pylori to rule out other etiologies for emesis and nausea. Ordered a banana bag and want to continue K+ replacement. Continue monitoring for nausea/vomiting with food. If patient is still able to keep down food can discharge in the evening.
[2019-02-02] MEDS ORDERED: Multivitamins, Adult 10 ML, Folic Acid 1 MG, Thiamine HCl 100 MG in Dextrose 5 %-0.45 %... IV SCH (10:00)
[2019-02-02 10:38] LABS: Bilirubin 2+ (Negative); Blood, Urine Negative (Negative); Clarity Extra Turbid (Clear); Nitrite Negative (Negative); Protein, Urine (Dipstick) 50 mg/dL (Neg-Trace); Squamous Epithelial 21-50 HPF (0-3); Urobilinogen Greater than 12 mg/dL (Less than 2); WBC/HPF Greater than 50 HPF (0-3)
[2019-02-02 10:38] LABS: HBSAg Index 0.35 S/CO (0-0.99); Hep B Surf Ag Non-Reactive S/CO (NonReactive); Hep C IgG Ab Non-Reactive (NonReactive); Hep C Index 0.11 S/CO (0-0.79)
[2019-02-02 10:54] LABS: Glucose, Urine (Dipstick) Unable to Interpret mg/dL (Negative); Leukocyte 500 Leu/uL (Negative)
[2019-02-02 11:11] LABS: Bacteria/HPF 3+ HPF (None Seen)
[2019-02-02 13:41] VITALS: BMI 35.9
[2019-02-02 16:23] VITALS: BP 109/60; TEMP 98.2
--- NOTE | 2019-02-02 16:47 | PDOC.EVN ---
Event Note - Event Note Event Note: DISCHARGE NOTE Patient tolerated food today! Labs will be followed as outpatient. Has meds at home. F/U in 48 hrs with her provider. DC summary dictated
--- NOTE | 2019-02-02 17:07 | DIS ---
DATE OF ADMISSION: 02/01/2019 DATE OF DISCHARGE: 02/02/2019 PRINCIPAL DIAGNOSES: 1. First trimester of . 2. Hyperemesis gravidarum. PROCEDURES PERFORMED: 1. OB ultrasound. 2. Right upper quadrant/abdominal ultrasound. 3. IV fluid hydration. HOSPITAL COURSE: In brief, this is a patient, who is a 23-year-old female, who presents to the ER with continued history of nausea, vomiting, and previous evaluations for the same issue. This was her third evaluation. She was admitted by Dr. Gómez for hydration and evaluation of possible hyperemesis gravidarum. Pelvic ultrasound confirmed an intrauterine at 9 weeks and 3 days. heart tones were normal. Laboratory assessment showed a beta-hCG value of 191,000, AST and ALT were slightly elevated with an AST of 58, ALT of 109. Lipase was normal at 8. Creatinine initially was 1.12, reflecting possible slight dehydration, but after hydration it was 0.75. This repeat value was in the morning of February 02. Hematocrit value was 42 on admission. Normal platelets. I evaluated the patient on February 02, 2019, in the morning and she was feeling better. I had ordered a vitamin bag in addition to her normal saline and potassium replacement that had been ordered by Dr. Gómez. I also evaluated the right upper quadrant ultrasound, which showed cholelithiasis but no evidence of common bile duct abnormality. I did give the patient these news and told her that she could follow up for gallstones later on in this or . I did not feel that those were contributing to the patient's nausea. I also ordered H pylori as well as a full hepatitis panel, but these were not available by the time of discharge. On February 02, 2019, I was advised by the patient's nurse that she was able to tolerate her food today and was requesting discharge home. She does have antiemetics at home. As she was clinically well, with no evidence of threatened miscarriage, and able to tolerate food, the decision was made to discharge her home. She will follow up with her provider in 48 hours, so that she can check on the laboratories that were sent during this admission. Job ID: [id number]
[2019-02-02 22:49] LABS: Chlamydia by PCR Not Detected (NotDetected); GC by PCR Not Detected (NotDetected)
[2019-02-04 18:08] LABS: H. pylori IgA ABS Less than 9.0 units (0.0-8.9); H. pylori IgG ABS 6.45 (0.00-0.79); H. pylori IgM ABS Less than 9.0 units (0.0-8.9)
--- NOTE | 2019-02-06 10:27 | EKG ---
Test Reason : Blood Pressure : / mmHG Vent. Rate : 078 BPM Atrial Rate : 078 BPM P-R Int : 136 ms QRS Dur : 094 ms QT Int : 390 ms P-R-T Axes : 060 059 055 degrees QTc Int : 444 ms Normal sinus rhythm Normal ECG Confirmed by ERNST SINGH DO ([id number]), electronic news gathering editor AIXA FRAIRE ([id number] on 02/06/2019 10:26:53 AM Referred By: Confirmed By:ERNST SINGH DO
== END 2019-02-02 17:50 | disposition home or self-care (01) ==
LOC: ERS 14:12 → 3SE 23:15
PROVIDERS: ADMIT Obstetrics & Gynecology; ATTEND Obstetrics & Gynecology
DX: O21.0 Mild hyperemesis gravidarum (principal); O99.281 Endocrine, nutritional and metabolic diseases complicating pregnancy, first trimester; E87.6 Hypokalemia; E86.0 Dehydration; E87.1 Hypo-osmolality and hyponatremia; O99.611 Diseases of the digestive system complicating pregnancy, first trimester; K80.20 Calculus of gallbladder without cholecystitis without obstruction; O99.89 Other specified diseases and conditions complicating pregnancy, childbirth and the puerperium; R74.0 Nonspecific elevation of levels of transaminase and lactic acid dehydrogenase [LDH]; Z3A.09 9 weeks gestation of pregnancy
CPT/HCPCS: 36415; 76705; 76856; 80048; 80053; 81001; 81003; 81015; 83690; 84702; 85025; 86692; 86709; 86803; 87086; 87340; 87480; 87491; 87510; 87591; 87660; 93005; 93976; 96361; 96365; 96366; 96367; 96375; 96376; G0378; J2405; J2550; J2765; J3411; J3480; J7042; J7120; S0028

== ENCOUNTER 2019-02-19 19:23 | Emergency (ER) | payer SELFPAY ==
[2019-02-19 20:28] LABS: #Lymphocytes 1.1 thou/uL (1.20-3.40); #Monocytes 0.1 thou/uL (0.11-0.59); #Neutrophils 9.5 thou/uL (1.40-6.50); %Basophils 0.1 % (0.0-1.0); %Lymphocytes 10.6 % (21.0-51.0); %Monocytes 1.1 % (0.0-10.0); %Neutrophils 88.2 % (42.0-75.0); Hemoglobin 13.1 g/dL (12.0-16.0); Mean Corpuscular HGB CONC 33.9 g/dL (32.0-36.0); Mean Corpuscular Hemoglobin 28.5 pg (27.0-31.0); Mean Platelet Volume 6.7 fL (7.4-10.4); Platelet Count 368 thou/uL (130-400); RBC Distribution Width 15.1 % (11.5-14.5); Red Blood Cell (RBC) Count 4.61 mill/uL (4.20-5.40); White Blood Cell (WBC) Count 10.7 thou/uL (4.8-10.8)
[2019-02-19 20:50] LABS: ALT (SGPT) 13 U/L (8-55); AST (SGOT) 14 U/L (5-34); Albumin 4.2 g/dL (3.5-5.0); Alkaline Phosphatase 59 U/L (40-150); Anion Gap 17 mmol/L (10-20); BUN (Urea Nitrogen) 6 mg/dL (7.0-18.7); Bilirubin, Total 0.8 mg/dL (0.2-1.2); Calc. Creatinine Clearance 0 mL/min (70-130); Carbon Dioxide 20 mmol/L (22-29); Chloride 103 mmol/L (98-107); Estimated GFR-MDRD Greater than 90; Globulin 3.9 g/dL (2.4-3.5); Glucose 96 mg/dL (70-105); Lipase 4 U/L (8-78); Potassium 3.7 mmol/L (3.5-5.1); Protein, Total 8.1 g/dL (6.0-8.3); Sodium 136 mmol/L (136-145)
[2019-02-19] MEDS ORDERED: Ondansetron PF 4 MG/2 ML Vial ONE (21:54)
[2019-02-19 22:51] LABS: Bilirubin Negative (Negative); Blood, Urine Negative (Negative); Clarity Turbid (Clear); Glucose, Urine (Dipstick) Normal (Negative); Leukocyte 500 Leu/uL (Negative); Nitrite Negative (Negative); Protein, Urine (Dipstick) 200 mg/dL (Neg-Trace)
[2019-02-19 23:01] LABS: Bacteria/HPF 2+ HPF (None Seen)
[2019-02-19] MEDS ORDERED: cefTRIAXone\\ROCEPHIN 1 GM VIAL ONE ×2 (23:34→23:39)
[2019-02-19] MEDS ORDERED: Promethazine HCl 12.5 MG SUPP ONE (23:40)
[2019-02-19] MEDS ORDERED: Promethazine HCl 25 MG/ML VIAL ONE (23:42)
== END 2019-02-20 01:08 | disposition home or self-care (01) ==
LOC: ERS 19:23
DX: O21.9 Vomiting of pregnancy, unspecified (principal); O23.41 Unspecified infection of urinary tract in pregnancy, first trimester; Z3A.13 13 weeks gestation of pregnancy
CPT/HCPCS: 36415; 80053; 81003; 81015; 83690; 84702; 85025; 96361; 96365; 96367; 96375; J0696; J2405; J2550

== ENCOUNTER 2019-02-20 16:14 | Inpatient (IN) | payer MEDICAID, SELFPAY ==
[2019-02-20 18:42] LABS: #Lymphocytes 1.7 thou/uL (1.20-3.40); #Monocytes 0.4 thou/uL (0.11-0.59); #Neutrophils 8.3 thou/uL (1.40-6.50); %Basophils 0.4 % (0.0-1.0); %Eosinophils 0.1 % (0.0-10.0); %Lymphocytes 16.4 % (21.0-51.0); %Monocytes 3.4 % (0.0-10.0); %Neutrophils 79.7 % (42.0-75.0); Hemoglobin 12.7 g/dL (12.0-16.0); Mean Corpuscular HGB CONC 34.6 g/dL (32.0-36.0); Mean Corpuscular Hemoglobin 28.9 pg (27.0-31.0); Mean Corpuscular Volume 83.5 fL (78.0-98.0); Mean Platelet Volume 6.8 fL (7.4-10.4); Platelet Count 334 thou/uL (130-400); Red Blood Cell (RBC) Count 4.39 mill/uL (4.20-5.40); White Blood Cell (WBC) Count 10.5 thou/uL (4.8-10.8)
[2019-02-20 19:04] LABS: ALT (SGPT) 11 U/L (8-55); AST (SGOT) 12 U/L (5-34); Alkaline Phosphatase 57 U/L (40-150); Anion Gap 13 mmol/L (10-20); BUN (Urea Nitrogen) 6 mg/dL (7.0-18.7); Bilirubin, Total 0.7 mg/dL (0.2-1.2); CK (CPK) 48 U/L (29-168); Calc. Creatinine Clearance 0 mL/min (70-130); Calcium 9.6 mg/dL (7.8-10.44); Carbon Dioxide 22 mmol/L (22-29); Chloride 103 mmol/L (98-107); Estimated GFR-MDRD Greater than 90; Globulin 3.7 g/dL (2.4-3.5); Glucose 88 mg/dL (70-105); Potassium 3.4 mmol/L (3.5-5.1); Protein, Total 7.7 g/dL (6.0-8.3); Sodium 135 mmol/L (136-145)
[2019-02-20] MEDS ORDERED: Ondansetron ODT 8 MG TAB ONE (19:31)
[2019-02-20] MEDS ORDERED: Metoclopramide HCl 10 MG/2 ML VIAL ONE (19:31)
[2019-02-20] MEDS ORDERED: Promethazine HCl 25 MG/ML VIAL ONE (19:31)
--- NOTE | 2019-02-20 20:09 | ULT ---
PELVIC ULTRASOUND WITH DOPPLER: 02/20/19 HISTORY: Nausea, vomiting. FINDINGS: A single live intrauterine gestation is seen with measurements corresponding to an estimated gestatio nal age of 11 weeks, 4 days and HIRA at 09/07/2019. The [place]-rump length measures 5.38 cm. Gestational sac diameter 5.15 cm and yolk sac diameter 0.57 cm. The heart rate measures 165 beats per minute. No subchorionic hemorrhage is seen. The right ova ry is visualized and has a normal appearance and demonstrates flow. The left ovary is not visualized. IMPRESSION: Single live IUP of 11 weeks, 4 days estimated gestational age and HIRA at 09/07/2019. POS: [facility]
[2019-02-20] MEDS ORDERED: Acetaminophen 325 MG TAB PO PRN (22:07)
[2019-02-20] MEDS ORDERED: Ondansetron PF 4 MG/2 ML Vial IVP PRN (22:07)
[2019-02-20] MEDS ORDERED: Calcium Carbonate 500 MG ChewTAB PO PRN (22:07)
[2019-02-20] MEDS ORDERED: Acetaminophen 650 MG Suppository PR PRN (22:07)
--- NOTE | 2019-02-20 22:10 | PDOC.FPROB ---
FMR OB H&P: HPI - History of Present Illness Chief Complaint: N/V Indentification: 23 yo @ 11.4 by maico dougherty History of Present Illness: 23 yo F w/ h/o hyperemesis gravidarum this presents to ED for CC of nausea and vomiting for the last 3 days. She reports since her last admission she was well controlled on her discharge medication; however, 3 days [employer] her symptoms returned. Denies fever, diarrhea and constipation. No vaginal bleeding discharge or LOF. 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 - Surgical History Sx History: CS x1 - Social History Social History: Denies alcohol tobacco and drug use - Family History Family History: None FMR OB H&P: Medications - Current Home Medications: Medication Instructions Recorded Confirmed Type No Known 02/01/19 02/01/19 History Allergies/Adverse Reactions: Allergies Allergy/AdvReac Type Severity Reaction Status Date / Time No Known Allergies Allergy Verified 02/01/19 23:30 FMR OB H&P: ROS - Review of Systems General: denies: fever/chills, fatigue Eyes: denies: vision changes ENT: denies: trouble with swallowing Cardiovascular: denies: chest pain Respiratory: denies: cough, congestion, shortness of breath Gastrointestinal: reports: abdominal pain (mild discomfort, diffuse), indigestion, nausea, vomiting. denies: cramping, diarrhea, constipation, bright red blood, dark black tarry stools Genitourinary (Female): denies: dysuria, vaginal discharge, vaginal bleeding FMR OB H&P: Physical Exam - Physical Exam General: NAD, awake, alert and oriented HEENT: EOMI, grossly normal vision, grossly normal hearing Neck: trachea midline Heart: RRR, normal S1/S2, no murmurs/rubs/gallops, no edema General: CTAB, no respiratory distress, good air movement, no rales/rhonchi, no wheezing, no retractions Abdomen: soft, non-tender, bowel sound present Neurological: no focal deficit Skin: no jaundice FMR OB H&P: Results - Labs Lab results: Laboratory Results - last 24 hr 02/20/19 02/20/19 02/20/19 18:34 18:34 18:34 WBC 10.5 RBC 4.39 Hgb 12.7 Hct 36.6 MCV 83.5 MCH 28.9 MCHC 34.6 RDW 15.0 H Plt Count 334 MPV 6.8 L Neutrophils % 79.7 H Lymphocytes % 16.4 L Monocytes % 3.4 Eosinophils % 0.1 Basophils % 0.4 Neutrophils # 8.3 H Lymphocytes # 1.7 Monocytes # 0.4 Eosinophils # 0.0 Basophils # 0.0 Sodium 135 L Potassium 3.4 L Chloride 103 Carbon Dioxide 22 Anion Gap 13 BUN 6 L Creatinine 0.73 Estimated GFR (MDRD) Greater than 90 Glucose 88 Calcium 9.6 Total Bilirubin 0.7 AST 12 ALT 11 Alkaline Phosphatase 57 Creatine Kinase 48 Serum Total Protein 7.7 Albumin 4.0 Globulin 3.7 H Albumin/Globulin Ratio 1.1 L Lipase 9 FMR OB H&P: A/P Disposition: 1) 23 yo @ 11.4 weeks by todays US presents for intractable N/V and inability to tolerate PO - will admit to medical obs and IVF hydrate - PRN zofran for n/v - Clear liquid diet and ADAT Dispo: Stable, admit to medical obs and IVF hydrate. Prn zofran for n/v. Discussion: Date/Time: 02/20/192209 This H&P was discussed with [] and [] who agree with the above documentation and plan. Addendum - Attending - Attending Attestation Date/Time: 02/20/192323 I personally evaluated the patient and discussed the management with Dr. Samuel. 11 weeks with hyperemesis. Will start IV fluids and antiemetics. Clear liqiuds and advance. I agree with the History, Examination, Assessment and Plan documented above.
[2019-02-20] MEDS ORDERED: Lactated Ringer's 1,000 ML IV SCH (22:15)
--- NOTE | 2019-02-21 00:41 | PDOC.FM ---
- Subjective Subjective: 23 yo @ 11.4 w/ hyperemesis gravidarum. Pt resting comfortably and no episodes of vomiting. - Objective MAR Reviewed: Yes Result Diagrams: 02/20/19 18:34 02/20/19 18:34 Phys Exam - Physical Examination Constitutional: NAD HEENT: PERRLA, moist MMs, sclera anicteric Neck: no nodes Respiratory: no wheezing, no rales, no rhonchi, clear to auscultation bilateral Cardiovascular: RRR, no significant murmur, no rub Gastrointestinal: soft, non-tender, no distention, positive bowel sounds Musculoskeletal: no edema Neurological: non-focal, moves all 4 limbs Psychiatric: normal affect Dx/Plan (1) Hyperemesis gravidarum Code(s): O21.0 - MILD HYPEREMESIS GRAVIDARUM Status: Acute - Plan Plan: Hyperemesis gravidarum - cont IVF hydration - clear liquid diet and adat - zofran prn for n/v - consider dc this afternoon if no recurrent episodes of NV. Addendum - Attending - Attending Attestation Date/Time: 02/21/19 1468 I personally evaluated the patient and discussed the management with Dr. Samuel. I agree with the History, Examination, Assessment and Plan documented above.
[2019-02-21] MEDS: Lactated Ringer's 1,000 ML IV SCH ×3 (00:46→17:33)
--- NOTE | 2019-02-21 12:25 | PDOC.EVN ---
Event Note - Event Note Event Note: Has not been able to tolerate food or liquids since admission. 2 episodes of vomiting after attempting to drink water. Reports with IV she has not been attempting to drink fluids as much as she does at home. Reports >10 episodes per day at home. Pt has had 6.3kg wt loss since last admission and wt was obtained after fluid resuscitation. Plan Will schedule Reglan 10mg q8h, benadryl 12.5mg q4h, Vit B6 25 BID and Zofran 8mg BID. Continue IVFs and Encourage PO intake. Will plan to discharge once pt is tolerating PO Discussed weaning from the Zofran first once symptoms are controlled. Nidia Artis MD PGY-2 Pt was seen and evaluated with Dr Turner
[2019-02-21] MEDS: diphenhydrAMINE 50 MG/ML VIAL IVP SCH ×3 (14:35→21:18)
[2019-02-21] MEDS: Ondansetron PF 4 MG/2 ML Vial IVP SCH ×2 (14:35→22:12)
[2019-02-21] MEDS: Metoclopramide HCl 10 MG/2 ML VIAL IVP SCH ×2 (14:35→22:15)
[2019-02-22] MEDS: diphenhydrAMINE 50 MG/ML VIAL IVP SCH ×6 (01:06→21:25)
[2019-02-22] MEDS: Lactated Ringer's 1,000 ML IV SCH ×3 (01:06→14:03)
[2019-02-22] MEDS: Ondansetron PF 4 MG/2 ML Vial IVP SCH ×3 (06:51→22:31)
[2019-02-22] MEDS: Metoclopramide HCl 10 MG/2 ML VIAL IVP SCH ×3 (06:51→22:30)
--- NOTE | 2019-02-22 09:14 | PDOC.EVN ---
Event Note - Event Note Event Note: 11 weeks. Continues to have N/V despite Zofran, Reglan, Benadryl. Emesis x 4 since MN. VSS AF Abdomen is soft. Plan; GI consult for refractory hyperemesis.
[2019-02-22 14:10] VITALS: BMI 33.6
[2019-02-22] MEDS: Sodium Chloride 0.45% 1,000 ML IV SCH (18:27)
[2019-02-22] MEDS: Hydrocortisone Sod Succ/PF 100 mg/2 ml Vial IVP SCH (21:26)
--- NOTE | 2019-02-22 22:08 | CON ---
DATE OF CONSULTATION: 02/22/2019 REASON FOR CONSULTATION: Hyperemesis gravidarum. CONSULTING PROVIDER: Alonso Crespo MD HISTORY OF PRESENT ILLNESS: The patient is a 23-year-old female with no significant past medical history, presenting with complaints of recurrent nausea and vomiting. The patient is currently 11 weeks with her 2nd child and had been experiencing only mild symptoms of "morning sickness" during the course of her . However, approximately 4 days ago, she began having increasing episodes of nausea and vomiting, having approximately 10 to 12 discrete episodes of vomiting per day. With this significant increase in her symptoms, it prompted her to seek healthcare assistance and has been evaluated on multiple occasions for her intractable nausea and vomiting with little success in managing her symptoms. At home, with her attempts to stay hydrated, she had been attempting to drink more Gatorade and water, but would experience increased nausea and vomiting within 5-10 minutes after ingestion of any food stuffs. This was associated with 2 episodes of hematemesis characterized as the appearance of dark red blood mixed in with mucus, but has not recurred over the last 24 to 48 hours. Also during this time period, she was having approximately 5-6 liquid bowel movements per day with no difficulty with defecation, but denied any sick contacts, herbal medications, [id number] medications, changes in medications, NSAIDs, or exposure to untreated water sources. She does describe a weight loss of approximately 30 pounds over the last 2 weeks, however. Currently, she denies any fevers, chills, abdominal pain, melena, hematochezia, dysphagia, odynophagia, or constipation. REVIEW OF SYSTEMS: A 10-category review of systems was obtained with all responses negative except for the pertinent positives as listed in HPI. PAST MEDICAL HISTORY: None. PAST SURGICAL HISTORY: x1. FAMILY HISTORY: Denies any GI malignancies. SOCIAL HISTORY: Denies any tobacco, alcohol, or illicit drug use. OUTPATIENT MEDICATIONS: None. ALLERGIES: NO KNOWN DRUG ALLERGIES. PHYSICAL EXAMINATION: VITAL SIGNS: Temperature 99, pulse 66, blood pressure 116/63, respiratory rate 12, saturating 100% on room air. GENERAL: The patient is lying in bed, in no acute distress. Alert and oriented x4. HEENT: Normocephalic, atraumatic. NECK: Supple. No JVD or scleral icterus noted. CARDIOVASCULAR: Regular rate and rhythm with no discernible murmurs, gallops, or rubs. RESPIRATORY: Clear to auscultation bilaterally with no discernible wheezes or rales. ABDOMEN: Normoactive bowel sounds. Soft, nontender, nondistended. EXTREMITIES: No cyanosis, clubbing, or edema. LABORATORY DATA: CBC with a white blood cell count of 10.5, hemoglobin 12.7, hematocrit 36.6, platelets 334. Chemistry with a sodium of 135, potassium 3.4, chloride 103, CO2 22, BUN 6, creatinine 0.73, glucose 88. AST 12, ALT 11, alkaline phosphatase 57, total bilirubin 0.7, lipase 9. IMAGING DATA: A pelvic ultrasound was performed on February 20, 2019, which showed a single live intrauterine gestation corresponding to estimated gestational age of 11 weeks 4 days with no additional abnormalities. However, the left ovary was not well visualized during that exam. ASSESSMENT AND PLAN: The patient is a 23-year-old female with no significant past medical history, presenting with intractable nausea and vomiting, consistent with hyperemesis gravidarum. Hyperemesis gravidarum: The patient is presenting during her 11-week with the acute onset of increased nausea and vomiting, characterizes having approximately 10 to 12 discrete episodes of bilious vomiting per day. She has had 2 episodes of hematemesis characterized as dark red blood, which have not recurred, but most likely secondary to either a Catalina-Dominguez tear or esophagitis related to her frequent nausea and vomiting. Upon review of her labs, her hemoglobin and hematocrit are currently at baseline making a significant gastrointestinal bleed much less likely. She has been currently trialed on doxylamine, pyridoxine, diphenhydramine, metoclopramide, and Zofran as part of treatment for the hyperemesis gravidarum with very little success in terms of symptom relief. Antacids have also been relatively innocuous in terms of symptom relief as well. With the appearance of diarrhea as part of her increased nausea and vomiting, it could be in line with hyperemesis gravidarum, but it could also be indicative of possible infection, which could then further contribute to nausea and vomiting (less likely given the nausea and vomiting symptoms appeared prior to the onset of the diarrhea). At this point, the differential could include hyperemesis gravidarum, gastroesophageal reflux disease, infectious etiology (less likely), dysfunction with gastric accommodation (less likely), [employer] neoplasm triggering nausea and vomiting, (less likely), and/or GI neoplasm (much less likely in this low risk demographic). RECOMMENDATIONS: 1. We would continue the current regimen of diphenhydramine, metoclopramide, and Zofran as part of antiemetic control, but would add hydrocortisone 100 mg b.i.d. in an attempt to treat refractory hyperemesis gravidarum. 2. We would obtain infectious stool studies for possible etiology of her nausea and vomiting, especially since given her significant healthcare exposures. 3. We changed the patient from lactated Ringer's to normal saline as part of resuscitated fluid. 4. Change the patient's diet to a clear liquid diet and as her nausea and vomiting improves advance as tolerated. We will continue to follow. Please call with any questions. Job ID: [id number]
--- NOTE | 2019-02-23 00:42 | PDOC.EVN ---
Event Note - Event Note Event Note: 12 weeks. Feeling some better, emesis x only 1 this PM. VSS AF Abdomen remains soft. IV steroids started by GI today, imput greatly appreciated. Cont. IV fluid, antiemetics and steroids per GI.
[2019-02-23] MEDS: diphenhydrAMINE 50 MG/ML VIAL IVP SCH ×6 (01:24→22:05)
[2019-02-23] MEDS: Sodium Chloride 0.45% 1,000 ML IV SCH ×3 (02:50→22:00)
[2019-02-23] MEDS: Ondansetron PF 4 MG/2 ML Vial IVP SCH ×3 (05:32→22:07)
[2019-02-23] MEDS: Metoclopramide HCl 10 MG/2 ML VIAL IVP SCH ×3 (05:32→22:02)
[2019-02-23] MEDS: Hydrocortisone Sod Succ/PF 100 mg/2 ml Vial IVP SCH ×2 (08:38→22:00)
--- NOTE | 2019-02-23 11:55 | PRG ---
DATE OF SERVICE: 02/23/2019 REASON FOR CONSULTATION: Hyperemesis gravidarum, diarrhea. SUBJECTIVE: The patient states that since starting the steroids yesterday, she did have two episodes of emesis last night, but was in association with attempted increased oral intake. She has not reattempted to eat or drink anything this morning and as such has not had any further episodes of nausea and vomiting. She also states her diarrhea does continue having approximately 3 to 4 semi-solid liquid bowel movements over the last 12 to 24 hours without the appearance of any blood or abdominal pain. Otherwise, she denies any fevers, chills, abdominal pain, melena, hematochezia, dysphagia, odynophagia, or constipation. OBJECTIVE: VITAL SIGNS: Temperature 98.4, pulse 64, blood pressure 126/75, respiratory rate 20, and saturating 99% on room air. GENERAL: The patient is lying in bed, in no acute distress. Alert and oriented x4. CARDIOVASCULAR: Regular rate and rhythm. RESPIRATORY: Clear to auscultation bilaterally. ABDOMEN: Normoactive bowel sounds. Soft, nontender, and nondistended. EXTREMITIES: No cyanosis, clubbing, or edema. LABORATORY DATA: No current studies are available for review with CBC or chemistry; however, in fact the stool studies were positive for Campylobacter antigen in addition to Clostridium difficile antigen with toxin pending at this time. ASSESSMENT AND PLAN: The patient is a 23-year-old female with no significant past medical history, presenting with intractable nausea, vomiting, and diarrhea, consistent with possible hyperemesis gravidarum and campylobacteriosis. Nausea and vomiting/hyperemesis gravidarum: The patient is presenting with fairly acute onset of intractable nausea and vomiting over the last 3 to 4 days, characterized as having 10 to 12 discrete episodes of bilious vomiting per day. She was trialed on doxylamine, pyridoxine, diphenhydramine, metoclopramide, and Zofran as part of this treatment with [id number] relief in terms of symptom relief with the institution of hydrocortisone 100 mg b.i.d. She has had decrease in the number of vomiting episode so far, but has not been challenged with oral intake that would induce any episodes of nausea or vomiting. In the meantime, she was diagnosed with campylobacteriosis as an effective agent within the GI tract that could potentially induce nausea, vomiting, and diarrhea. Recommendations; 1. Would continue the current regimen of diphenhydramine, metoclopramide, Zofran, and hydrocortisone given probable hyperemesis gravidarum. 2. Continue with normal saline as resuscitated fluid. 3. Would attempt to challenge the patient today with oral intake and assess response to treatment. Diarrhea: The patient was presenting with acute onset of diarrhea that was accompanied with nausea and vomiting. Infectious stool studies obtained during this admission were positive for Campylobacter antigen, in addition to Clostridium difficile antigen with toxin still pending at this time. At this time, the likelihood of a dual infection with Campylobacter and Clostridium is unlikely and I would therefore treat her campylobacteriosis given the higher resistance rates with fluoroquinolone administration, azithromycin would be the drug of choice and is safe in . Recommendations; 1. Would start the patient on azithromycin 500 mg IV x3 days for treatment of Campylobacter infection. 2. Would follow up on the Clostridium difficile studies for evaluation of toxin (the patient may be just a carrier). We will continue to follow. Please call with any questions. Job ID: [id number]
[2019-02-23] MEDS: Azithromycin 500 MG in Sodium Chloride 0.9% 250 ML 250 ML IVPB SCH (11:59)
[2019-02-24] MEDS: diphenhydrAMINE 50 MG/ML VIAL IVP SCH ×6 (00:53→21:22)
[2019-02-24] MEDS: Sodium Chloride 0.45% 1,000 ML IV SCH ×3 (02:48→17:41)
[2019-02-24] MEDS: Metoclopramide HCl 10 MG/2 ML VIAL IVP SCH ×3 (05:53→23:26)
[2019-02-24] MEDS: Ondansetron PF 4 MG/2 ML Vial IVP SCH ×3 (05:53→23:32)
--- NOTE | 2019-02-24 08:00 | PRG ---
DATE OF SERVICE: 02/24/2019 HISTORY OF PRESENT ILLNESS: The patient is a 23-year-old female, who was admitted for hyperemesis gravidarum and is currently on IV Benadryl, Zofran, Raglan and vitamin B6 and hydrocortisone. The patient had a GI consult recently, who has diagnosed her with Campylobacter antigen and is treating her with azithromycin for 3 days, today is day #2. The patient this morning reports that she is able to have a fruit cup last night and keep it down and will be attempting breakfast this morning. She otherwise has no complaints. PHYSICAL EXAMINATION: VITAL SIGNS: Blood pressure 131/75, temperature 98.5, pulse is 70, respiratory rate of 13, O2 sats are 98% on room air. GENERAL: She appears to be in no acute distress. She is alert, oriented, cooperative, and pleasant to interact with. ABDOMEN: Soft. ASSESSMENT AND PLAN: The patient is a 23-year-old female with an intrauterine at about 12 weeks presenting for hyperemesis gravidarum with significant weight loss. The patient has been able to tolerate the fruit cup last night on multiple IV medications as described in the HPI. Plan today will be if she tolerates breakfast will be to transition her to p.o. medications. Plan at this time is to continue her azithromycin IV as this can cause significant nausea. Her last dose will be tomorrow. If she tolerates her diet well today and tolerates p.o. medications, tentative plan would be discharged tomorrow and close followup with an OB provider of her choice as the patient has not established care yet. Job ID: [id number] MTDD
[2019-02-24] MEDS: Hydrocortisone Sod Succ/PF 100 mg/2 ml Vial IVP SCH ×2 (08:34→21:26)
[2019-02-24] MEDS ORDERED: Ondansetron ODT 8 MG TAB SL PRN (09:42)
[2019-02-24] MEDS: Azithromycin 500 MG in Sodium Chloride 0.9% 250 ML 250 ML IVPB SCH (11:53)
--- NOTE | 2019-02-24 23:23 | PRG ---
DATE OF SERVICE: 02/24/2019 REASON FOR CONSULTATION: Hyperemesis gravidarum, diarrhea. SUBJECTIVE: The patient states that her nausea and vomiting has improved and was able to tolerate a fruit cup last night in addition to a smaller volume of breakfast this morning without any further episodes of nausea or vomiting. She currently denies any nausea or vomiting while on the current regimen. She also states that her diarrhea has improved, having approximately 1 to 2 semi-solid bowel movements over the last 12 to 24 hours. At this time, she denies any fevers, chills, abdominal pain, melena, hematochezia, dysphagia, odynophagia, or constipation. OBJECTIVE: VITAL SIGNS: Temperature 98.2, pulse 84, blood pressure 133/71, respiratory rate 16, saturating 99% on room air. GENERAL: The patient is lying in bed, in no acute distress. Alert and oriented x4. CARDIOVASCULAR: Regular rate and rhythm. RESPIRATORY: Clear to auscultation bilaterally. ABDOMEN: Normoactive bowel sounds. Soft, nontender, nondistended. EXTREMITIES: No cyanosis, clubbing, or edema. LABORATORY DATA: No current studies are available for review. IMAGING DATA: No current GI imaging is available for review. ASSESSMENT AND PLAN: The patient is a 23-year-old female with no significant past medical history, presenting with intractable nausea, vomiting, and diarrhea, consistent with possible hyperemesis gravidarum and campylobacteriosis. Nausea and vomiting/hyperemesis gravidarum. The patient initially presented with fairly acute onset of intractable nausea and vomiting prior to admission, having approximately 10 to 12 discrete episodes of bilious vomiting per day. She was initially tried on doxylamine, pyridoxine, diphenhydramine, metoclopramide, and Zofran with only [id number] relief in symptoms. However, since institution of hydrocortisone 100 mg b.i.d. in addition to the above regimen, she has had a significant decrease in her nausea and vomiting and has been able to tolerate a more solid diet without further episodes of nausea and vomiting. In the meantime, she was diagnosed with campylobacteriosis, which could potentially induce nausea, vomiting, and diarrhea, but has been responding well to treatment. Recommendations: 1. We will continue the current regimen of diphenhydramine, metoclopramide, Zofran, and hydrocortisone given probable hyperemesis gravidarum. 2. Could consider de-escalation of therapy with a short course of steroids ending after approximately 48 to 72 hours of therapy. If continuation of the steroids is considered appropriate then the patient could be considered to be transferred to prednisone taper regimen consisting of 40 mg orally for one day, 20 mg for three days, 10 mg for three days, and then 5 mg for 7 days. 3. Continue with IV fluid resuscitation, but consider decreasing or discontinuation with increased oral intake. 4. Continue to challenge the patient with regular diet and assess response to treatment. Diarrhea. The patient initially presented with acute onset of diarrhea in addition to her nausea and vomiting. At first glance, it was thought to be due to hyperemesis gravidarum, but infectious stool studies obtained during this admission were positive for Campylobacter antigen consistent with campylobacteriosis. She has received approximately 2/3 doses of azithromycin for treatment of this condition and did experience some increased GI upset with administration of antibiotic (which is normal for this medication), but has been having decreased diarrhea since institution. Recommendations: 1. Would continue the patient on azithromycin 500 mg IV for a total duration of therapy of 3 days (would receive last dose tomorrow). 2. Continue to monitor patient for signs of resolution of her diarrhea. We will sign off at this time. Please call with any questions. Job ID: [id number]
--- NOTE | 2019-02-25 05:19 | PDOC.EVN ---
Event Note - Event Note Event Note: 12 2/7 weeks. Feeling much, much better. Tolerated pizza last night. VSS AF No bleeding. Plan:Cont. regular diet. Zofran PO prn Start Prednisone taper with 40 mg today then finish taper at home. Last dose of Zmax at mid day.
[2019-02-25] MEDS ORDERED: predniSONE 20 MG TAB PO SCH (08:00)
[2019-02-25] MEDS ORDERED: Ondansetron ODT 8 MG TAB SL SCH ×3 (09:48→21:00)
[2019-02-25] MEDS ORDERED: Metoclopramide HCl 10 MG TAB PO SCH ×2 (10:00→11:30)
[2019-02-25] MEDS ORDERED: pyridOXINE 50 MG (B6) TAB PO SCH ×2 (10:00→15:00)
[2019-02-25] MEDS: diphenhydrAMINE 25 MG CAP PO SCH ×2 (10:48→13:48)
[2019-02-25 11:47] VITALS: TEMP 98.4
[2019-02-25] MEDS: Azithromycin 500 MG in Sodium Chloride 0.9% 250 ML 250 ML IVPB SCH (12:00)
--- NOTE | 2019-02-25 16:48 | EKG ---
Test Reason : Blood Pressure : / mmHG Vent. Rate : 060 BPM Atrial Rate : 060 BPM P-R Int : 132 ms QRS Dur : 092 ms QT Int : 434 ms P-R-T Axes : 057 042 046 degrees QTc Int : 434 ms Normal sinus rhythm Normal ECG Confirmed by GLENN SANTIAGO ([id number]) on 02/25/2019 4:48:34 PM Referred By: DAX Confirmed By:GLENN SANTIAGO
[2019-02-25 17:01] VITALS: BP 133/80
--- NOTE | 2019-02-26 04:29 | DIS ---
DATE OF ADMISSION: 02/20/2019 DATE OF DISCHARGE: 02/25/2019 ADMITTING DIAGNOSES: 1. Hyperemesis gravidarum. 2. Intrauterine at approximately 12 weeks. DISCHARGE DIAGNOSES: 1. Hyperemesis gravidarum. 2. Intrauterine at approximately 12 weeks. PROCEDURES: None. CONSULTATIONS: GI. HOSPITAL COURSE: The patient is a 23-year-old female, with an intrauterine at approximately 12 weeks, presenting with persistent nausea and vomiting, who had been present for several ER visits prior to this admission and had failed outpatient management. Upon presentation, the patient was placed on IV fluids and scheduled antiemetics including Zofran, Reglan, Benadryl, and vitamin B6. The patient continued to feel bad, though had improved nausea and vomiting. A GI consult was made and IV steroids were added to her regimen greatly improving her symptoms now hospital day 5. The patient has been tolerating p.o. medications well since yesterday. Today, we placed her on her oral regimen of antiemetics and has continued to tolerate her diet well with this oral regimen. The patient is going to be discharged home. Vital signs this afternoon, it shows a blood pressure of 133/80, temperature 98.4, pulse is 72, respiratory rate of 12, saturating 100% on room air. In general, she appears to be in no acute distress. She appears much brighter affect, tolerating her diet well, appears to have energy again. The patient has no OB provider at this time. We have encouraged that she follow up with clinic who can see her without as she is trying to get her Medicaid insurance. The patient is being discharged home with an encouragement to see clinic within the next week for followup. She has a regimen that she is going home including Zofran 8 mg to be taken twice a day, vitamin B6 of 25 mg 3 times a day, diphenhydramine 25 mg 3 times a day, and Reglan 10 mg 30 minutes before meals 3 times a day. Patient has instructions to continue this regimen for the next week. Also, her prednisone taper, she is to take 30 mg tomorrow, 20 mg the following day, 10 mg for 3 days, and then 5 mg for 6 days. After 1 week of scheduled medications, the patient is to decrease and eliminate Zofran as tolerated and after 2 weeks if she continues to do well, she can discontinue her medications to p.r.n. status. Job ID: [id number]
== END 2019-02-25 17:26 | disposition home or self-care (01) | DRG 833 ==
LOC: ERS 16:14 → 3SE 19:02 → OBSVTOIN 19:02
PROVIDERS: ADMIT Obstetrics & Gynecology; ATTEND Obstetrics & Gynecology
DX: O21.0 Mild hyperemesis gravidarum (principal); Z3A.12 12 weeks gestation of pregnancy; O26.891 Other specified pregnancy related conditions, first trimester; E86.0 Dehydration
CPT/HCPCS: 36415; 76856; 80053; 82550; 83690; 85025; 87045; 87046; 87324; 87427; 87449; 87493; 93005; 93010; 96365; 96368; J0456; J1200; J1720; J2405; J2550; J2765; J3415; J7050; J7512; J8597; Q0163

== ENCOUNTER 2019-02-28 19:34 | Emergency (ER) | payer MEDICAID, SELFPAY ==
[2019-02-28] MEDS ORDERED: Ondansetron ODT 4 MG TAB ONE (20:33)
[2019-02-28] MEDS ORDERED: Acetaminophen 500 MG TAB ONE (20:33)
--- NOTE | 2019-02-28 20:40 | ULT ---
EXAM: Pelvic ultrasound HISTORY: Heavy vaginal bleeding at 13 weeks COMPARISON: None TECHNIQUE: Multiple grayscale and color Doppler images were obtained in a transabdominal and transvag inal pelvic ultrasound. Spectral analysis of the Doppler waveforms of the ovaries were performed. FINDINGS: CERVIX: No evidence of nabothian cysts. UTERUS: Normal in size without focal abnormality. No intrauterine is visualized. ENDOMETRIAL STRIPE: 19 mm. Heterogeneous in appearance. A small amount of free fluid is seen in the pelvis. RIGHT OVARY: Normal flow without focal mass. LEFT OVARY: Normal flow without focal mass. IMPRESSION: No intrauterine identified. The increased thickness of the endometrial stripe m ay represent blood products within the uterus.
[2019-02-28 21:04] LABS: #Basophils 0.1 thou/uL (0.0-0.2); #Lymphocytes 2.3 thou/uL (1.20-3.40); #Monocytes 0.4 thou/uL (0.11-0.59); #Neutrophils 8.7 thou/uL (1.40-6.50); %Basophils 0.5 % (0.0-1.0); %Eosinophils 0.1 % (0.0-10.0); %Lymphocytes 20.3 % (21.0-51.0); %Monocytes 3.3 % (0.0-10.0); %Neutrophils 75.8 % (42.0-75.0); Hemoglobin 11.9 g/dL (12.0-16.0); Mean Corpuscular HGB CONC 33.5 g/dL (32.0-36.0); Mean Corpuscular Hemoglobin 28.6 pg (27.0-31.0); Mean Corpuscular Volume 85.5 fL (78.0-98.0); Mean Platelet Volume 7.6 fL (7.4-10.4); Platelet Count 304 thou/uL (130-400); RBC Distribution Width 15.1 % (11.5-14.5); Red Blood Cell (RBC) Count 4.16 mill/uL (4.20-5.40); White Blood Cell (WBC) Count 11.4 thou/uL (4.8-10.8)
[2019-02-28 21:23] LABS: ALT (SGPT) 8 U/L (8-55); AST (SGOT) 11 U/L (5-34); Albumin 3.3 g/dL (3.5-5.0); Alkaline Phosphatase 48 U/L (40-150); Anion Gap 11 mmol/L (10-20); BUN (Urea Nitrogen) 5 mg/dL (7.0-18.7); Bilirubin, Total 0.4 mg/dL (0.2-1.2); Calc. Creatinine Clearance 0 mL/min (70-130); Carbon Dioxide 27 mmol/L (22-29); Chloride 100 mmol/L (98-107); Estimated GFR-MDRD Greater than 90; Globulin 2.8 g/dL (2.4-3.5); Glucose 75 mg/dL (70-105); Protein, Total 6.1 g/dL (6.0-8.3); Sodium 135 mmol/L (136-145)
[2019-02-28 22:04] LABS: Bacteria/HPF None Seen HPF (None Seen); Bilirubin Negative (Negative); Blood, Urine 3+ (Negative); Clarity Extra Turbid (Clear); Glucose, Urine (Dipstick) Normal (Negative); Leukocyte 75 Leu/uL (Negative); Mucous/LPF Rare LPF (<2+); Nitrite Negative (Negative); Protein, Urine (Dipstick) 70 mg/dL (Neg-Trace); RBC/HPF Greater than 50 HPF (0-3); Squamous Epithelial None Seen HPF (0-3); Urobilinogen Normal mg/dL (Less than 2); WBC/HPF 21-50 HPF (0-3)
== END 2019-02-28 22:45 | disposition home or self-care (01) ==
LOC: ERS 19:34
DX: O20.0 Threatened abortion (principal); O23.41 Unspecified infection of urinary tract in pregnancy, first trimester; Z3A.12 12 weeks gestation of pregnancy
CPT/HCPCS: 36415; 76856; 80053; 81003; 81015; 84702; 85025; 86900; 86901; 87086; Q0162

== ENCOUNTER 2020-03-28 16:39 | Emergency (ER) | payer OTHER, SELFPAY ==
[2020-03-28] MEDS ORDERED: Bupivacaine 0.5% 10 ML VIAL ONE (17:25)
== END 2020-03-28 17:53 | disposition home or self-care (01) ==
LOC: ERS 16:39
DX: L03.311 Cellulitis of abdominal wall (principal); L91.0 Hypertrophic scar
CPT/HCPCS: J3490

== ENCOUNTER 2020-12-25 07:16 | Emergency (ER) | payer OTHER, SELFPAY | END 2020-12-25 08:48 | disposition short-term general hospital (02) | LOC: ERS 07:16 | DX: O99.891 Other specified diseases and conditions complicating pregnancy (principal); R10.2 Pelvic and perineal pain; Z3A.31 31 weeks gestation of pregnancy; Z79.899 Other long term (current) drug therapy ==